=== PATIENT | female | born 1990 | race Caucasian/White ===

== ENCOUNTER 2021-04-22 11:31 | Inpatient (IN) | payer MEDICAID ==
[~2021-04-22] VITALS: Ht 165.1 cm; Wt 96.2 kg
--- NOTE | 2021-04-22 11:55 | NUR ---
RT COLLECTED RAPID COVID 19 SWAB USING [facility] WITH NO COMPLICATIONS AT THIS TIME.
--- NOTE | 2021-04-22 15:29 | NUR ---
04/22/21 1529 Elizabeth Delgado 1522 PATIENT ARRIVES TO ROOM 105 FBC. PATIENT RESTING WITH EYES CLOSED. RESP EVEN AND UNLABORED, ROOM AIR SATS >97%. PATIENT REPORTS MINIMAL PAIN AND NO NAUSEA.
--- NOTE | 2021-04-23 08:13 | PR ---
[facility] [address] [place], [place] [address] Signed PP Progress Notes Datetime Report Generated by MAURO: 04/23/2021 08:12 SUBJECTIVE: [id number] Pain: Abnormal Nausea/Vomiting: Denies Flatus: No Bowel Movement: No Vital Signs: [id number] Vital Signs: Reviewed; Within Normal Limits EXAM: Ongoing Cardiovascular: Normal Respiratory: Normal Abdomen/Uterus: Normal Lochia: Normal Vulva/Perineum: Normal Breasts: Normal CVA Tenderness: Normal Extremities: Normal Incision: Normal Progress: Normal Exam Comments: NAD RRR Abd: SNTND, fundus firm Incision c/d/i Lochia light UOP - borderline low Ext: trace edema IMPRESSION/PLAN/PROCEDURES: [id number] Impression: Normal Progression Plan: Continue Present Management Procedures: Transfusion Progress Notes: POD#1 s/p PLTCS for breech presentation, gHTN, maternal drug abuse with fentanyl and methamphetamines -BP elevated in correlation with pain overnight, continue to monitor -pain well controlled on morphine and dilaudid, discussed extensively with pt transition to orals -- percocet and ibuprofen, be aggressive with heat/ice to incision, abdominal binder once ambulating, bowel care for constipation -hgb 6.6 this am, awaiting transfusion 1 unit pRBC. r/b/a discussed, anticipate likely iron infusion tomorrow, discussed with pt. *Electronically Signed* 04/23/21 0812 LETICIA KARIMI DO PATIENT NAME: AV MONTIEL PROGRESS NOTE DATE OF : 88 PHYSICIAN: LETICIA KARIMI DO RPT #: [id number] REPORT IS CONFIDENTIAL AND NOT TO BE RELEASED WITHOUT AUTHORIZATION [address] [place] [address] Signed Signing Physician: Leticia Karimi DO Copies: ~ *Electronically Signed* 04/23/21811 LETICIA KARIMI DO PATIENT NAME: AV MONTIEL PROGRESS NOTE DATE OF : [birth year] PHYSICIAN: LETICIA KARIMI DO RPT #: [id number] REPORT IS CONFIDENTIAL AND NOT TO BE RELEASED WITHOUT AUTHORIZATION
--- NOTE | 2021-04-24 14:34 | PR ---
[facility] [address] [place], [place] [address] Signed PP Progress Notes Datetime Report Generated by MAURO: 04/24/2021 14:34 SUBJECTIVE: [id number] Pain: Abnormal Nausea/Vomiting: Denies Flatus: Yes Bowel Movement: Yes Vital Signs: [id number] Vital Signs: Reviewed; Within Normal Limits Notable Details: Intermittent elevated BP, no severe-range last 24 h EXAM: Ongoing Cardiovascular: Normal Respiratory: Normal Abdomen/Uterus: Normal Lochia: Normal Vulva/Perineum: Normal Breasts: Normal CVA Tenderness: Normal Extremities: Normal Incision: Normal Progress: Normal Exam Comments: Gen: NAD, sitting in chair at bedside, dressed and showered RRR No dyspnea Abd SNTND, FFBU Incision c/d/i, no erythema Extremities trace swelling IMPRESSION/PLAN/PROCEDURES: [id number] Impression: Normal Progression Plan: Continue Present Management; Discharge Procedures: None Progress Notes: POD#2 s/p PLTCS for gHTN, breech presentation -BP normotensive last 24h, asymptomatic -s/p 1u pRBC (hgb 8.7 preop, 6.6 POD#1) and iron infusion -insufficient care -maternal drug use -baby transferred to [facility] after delivery, to be adopted by pt's sister Desires discharge to home today *Electronically Signed* 04/24/21 1434 LETICIA KARIMI DO PATIENT NAME: AV MONTIEL PROGRESS NOTE DATE OF : 88 PHYSICIAN: LETICIA KARIMI DO RPT #: [id number] REPORT IS CONFIDENTIAL AND NOT TO BE RELEASED WITHOUT AUTHORIZATION [facility] [address] [place], [place] [address] Signed Discharge instructions, Follow-up, Lifting precautions discussed Signing Physician: Leticia Karimi DO Copies: ~ *Electronically Signed* 04/24/21 1434 LETICIA KARIMI DO PATIENT NAME: AV MONTIEL PROGRESS NOTE DATE OF : 88 PHYSICIAN: LETICIA KARIMI DO RPT #: [id number] REPORT IS CONFIDENTIAL AND NOT TO BE RELEASED WITHOUT AUTHORIZATION
--- NOTE | 2021-04-24 16:19 | OR ---
[facility] [address] [place], [place] [address] Signed DATE OF OPERATION: 04/22/2021 SURGEON: Electronically Signed By: LETICIA KARIMI, DO 04/24/21 1619 PATIENT NAME: AV MONTIEL OPERATIVE REPORT DATE OF : 88 REPORT #: [id number] PHYSICIAN: LETICIA KARIMI DO PCP: NO PRIMARY CARE PHYSICIAN REPORT IS CONFIDENTIAL AND NOT TO BE RELEASED WITHOUT AUTHORIZATION [facility] [address] [place], [place] [address] Signed Leticia Karimi DO PROCEDURE: Electronically Signed By: LETICIA KARIMI, DO 04/24/21 1619 PATIENT NAME: AV MONTIEL OPERATIVE REPORT DATE OF : 88 REPORT #: [id number] PHYSICIAN: LETICIA KARIMI DO PCP: NO PRIMARY CARE PHYSICIAN REPORT IS CONFIDENTIAL AND NOT TO BE RELEASED WITHOUT AUTHORIZATION [facility] [address] [place], [place] [address] Signed Primary low-transverse . CLAIMS TECHNICIAN: Ruby Wiggins MD. BLOOD LOSS: 600 mL. PREOPERATIVE DIAGNOSES: Gestational hypertension with hypertensive urgency, breech presentation, insufficient care, maternal drug use, maternal Rh-negative status, homelessness. POSTOPERATIVE DIAGNOSES: Gestational hypertension with hypertensive urgency, breech presentation, insufficient care, maternal drug use, maternal Rh-negative status, homelessness. LINES: None. DRAINS: Petty. FINDINGS: Viable female , Apgars 8 and 8 at 1 and 5 minutes, respectively. Delivered in complete breech position, left sacrum anterior. Normal-appearing uterus, bilateral tubes and ovaries. INDICATION: The patient is a 30-year-old, G8, P3-2-2-5, who presented for scheduled outpatient care in the office. She was found to have elevated blood pressure, was otherwise asymptomatic, but due to prior history of significant hemorrhage, requiring transfusion as well as increasingly difficult manual extraction of placenta over the course of each of her 5 vaginal deliveries we discussion regarding risks and benefits of prolonging with possible primary for breech presentation after hours on a weekend with high risk of hemorrhage versus risks of prematurity due to insufficient care and dating based on 36-week ultrasound were discussed with the patient. These risks were carefully weighed and the patient elected to proceed. She was taken directly to the [facility] where blood pressure was found to be severe range, persistent on repeat blood pressure. Preeclampsia labs were Electronically Signed By: LETICIA KARIMI DO 04/24/21 1619 PATIENT NAME: AV MONTIEL OPERATIVE REPORT DATE OF : 88 REPORT #: [id number] PHYSICIAN: LETICIA KARIMI DO PCP: NO PRIMARY CARE PHYSICIAN REPORT IS CONFIDENTIAL AND NOT TO BE RELEASED WITHOUT AUTHORIZATION [facility] [address] [place], [place] [address] Signed collected with preoperative labs including type and screen, and she was given 20 mg IV labetalol for hypertensive urgency. Two large bore IVs were started. PROCEDURE IN DETAIL: The patient was taken back to the operating room where spinal anesthesia was placed and was found to be adequate. Petty catheter was placed. Abdomen was prepped and draped in normal sterile fashion. The patient was positioned in supine position with a leftward tilt. Spinal anesthesia was again confirmed to be adequate. Pfannenstiel incision was made with a scalpel and was carried down to the underlying layer of fascia with Bovie cautery, cauterizing perforating vessels as they were encountered. Fascia was incised with a scalpel at midline and extended laterally with Melvin scissors. Inferior margin of the fascia was grasped and elevated with Madai clamps and underlying rectus muscle was dissected off bluntly and sharply with Melvin scissors. In a similar fashion, the superior margin was grasped, elevated, and the underlying rectus muscle was dissected off bluntly and sharply with Melvin scissors. Peritoneum was grasped with a hemostat and entered sharply with Metzenbaum scissors and extended laterally with blunt traction. Uterus was palpated to be consistent size with 37 weeks gestation. Jaime retractor was placed. Hysterotomy was made with a scalpel and extended laterally with gentle digital traction. 's hips were easily grasped, elevated, and delivered through the hysterotomy via normal breech maneuvers. In turn each warm was delivered via normal breech maneuvers. Nuchal cord x1 loose was noted and was reduced and head was delivered without difficulty. The baby was noted to be clenching both fists bilaterally and gave a sudden spontaneous high-pitched cry. The cord was immediately doubly clamped and cut and the baby was handed to the waiting nursery team. Cord blood was collected for type and Felice, and segment of cord was collected and placenta was manually extracted requiring use of ring forceps for full extraction of membranes. Of note, placenta was quite large in size. Uterus was cleared of clots and debris and hysterotomy was closed in a double-layer closure, first with 0 Monocryl in a running locked fashion, second layer with 0 Monocryl in an imbricating fashion. Excellent hemostasis was noted. Pelvis was suction irrigated with warm sterile saline and again hemostasis was noted. Jaime retractor was removed. ACell sheet was placed over the hysterotomy. Peritoneum was closed with 2-0 Vicryl in a running fashion. Rectus muscle was inspected for perforating vessels, which were cauterized with Bovie cautery. Rectus muscles were then reapproximated at midline with 0 Vicryl in simple interrupted fashion. Fascia was then closed with 2 separate sutures working first right to midline, the left to midline meeting in the middle with 0 Vicryl in a running fashion. Subcutaneous layer was inspected for perforating vessels, which were cauterized with Bovie cautery. This layer was then closed with 3-0 Vicryl in a running fashion. The skin was closed with 4-0 Monocryl in a subcuticular closure. Excellent hemostasis was noted. Uterus was Crede'd Electronically Signed By: LETICIA KARIMI DO 04/24/21 1619 PATIENT NAME: AV MONTIEL OPERATIVE REPORT DATE OF : 88 REPORT #: [id number] PHYSICIAN: LETICIA KARIMI DO PCP: NO PRIMARY CARE PHYSICIAN REPORT IS CONFIDENTIAL AND NOT TO BE RELEASED WITHOUT AUTHORIZATION [facility] [address] [place] [id number] Signed with scant bleeding noted and cervical dilation at the time of postoperative vaginal exam was 3 cm. Sponge and instrument counts were correct and the patient was taken remained in the operating room for a tap block performed by anesthesia with plans to return to [facility] room for postoperative recovery. DO ANNY MendezZ/MODL /[id number] Copies: ~ Electronically Signed By: LETICIA KARIMI DO 04/24/21 1619 PATIENT NAME: AV MONTIEL OPERATIVE REPORT DATE OF : 88 REPORT #: [id number] PHYSICIAN: LETICIA KARIMI DO PCP: NO PRIMARY CARE PHYSICIAN REPORT IS CONFIDENTIAL AND NOT TO BE RELEASED WITHOUT AUTHORIZATION
== END 2021-04-24 14:50 | disposition home or self-care (01) | DRG 787 ==
LOC: FBCO 11:31 → FBC 11:32
PROVIDERS: ADMIT Obstetrics & Gynecology; ATTEND Obstetrics & Gynecology
PROC: 3E0T3BZ Introduction of Anesthetic Agent into Peripheral Nerves and Plexi, Percutaneous Approach (ICD-10-PCS; 2021-04-22)
PROC: 3E0T33Z Introduction of Anti-inflammatory into Peripheral Nerves and Plexi, Percutaneous Approach (ICD-10-PCS; 2021-04-22)
PROC: 10D00Z1 Extraction of Products of Conception, Low, Open Approach (ICD-10-PCS; principal; 2021-04-22 13:30)
PROC: 3E0234Z Introduction of Serum, Toxoid and Vaccine into Muscle, Percutaneous Approach (ICD-10-PCS; 2021-04-23)
PROC: 30233N1 Transfusion of Nonautologous Red Blood Cells into Peripheral Vein, Percutaneous Approach (ICD-10-PCS; 2021-04-23)
DX: O32.1XX0 Maternal care for breech presentation, not applicable or unspecified (principal); O99.324 Drug use complicating childbirth; O99.355 Diseases of the nervous system complicating the puerperium; Z37.0 Single live birth; Z20.822 Contact with and (suspected) exposure to COVID-19; O69.81X0 Labor and delivery complicated by cord around neck, without compression, not applicable or unspecified; G89.18 Other acute postprocedural pain; I16.0 Hypertensive urgency; Z3A.37 37 weeks gestation of pregnancy; O13.4 Gestational [pregnancy-induced] hypertension without significant proteinuria, complicating childbirth; F11.90 Opioid use, unspecified, uncomplicated; F15.90 Other stimulant use, unspecified, uncomplicated; Z59.0 Homelessness; O26.893 Other specified pregnancy related conditions, third trimester; Z67.11 Type A blood, Rh negative
CPT/HCPCS: 01961; 36415; 36430; 76942; 82565; 82570; 83030; 84156; 84450; 84520; 84550; 85025; 85027; 86850; 86870; 86900; 86901; 86920; C9803; G0480; J0690; J1100; J1170; J1650; J1885; J2001; J2250; J2270; J2274; J2405; J2550; J2590; J2704; J2790; J2795; J3010; J7040; J7121; P9016; Q0138; U0003